=== PATIENT | male | born 1970 | race Caucasian/White ===

== ENCOUNTER 2020-07-17 12:33 | Emergency (ER) | payer OTHER ==
--- OUTSIDE RECORDS SUMMARY | 2020-07-17 12:35 | XMS REPORT | Clinical Summary ---
:1970 Author Organization [facility] Address [address] [place] [address] Care Team Providers Name Role Phone Denis Vallejo MD, Damir Lambert Primary Care Provider Allergies No Known Active Allergies Medications Medication Sig Dispensed Refills Start Date End Date Status metoprolol succinate XL Take 50 mg by 5 05/22/2017 Active (TOPROL-XL) 50 mg 24 hr mouth every tablet morning. Active Problems Problem Noted Date Diverticulitis of colon 09/24/2017 Surgical History Surgery Date Site/Laterality Comments COLONOSCOPY 08/16/2017 diverticulitis FRACTURE SURGERY 08/05/1994 - Right arm 08/04/1995 RESECTION, COLON, LOW 09/24/2017 Abdomen/N/A Procedure: RESECTION, ANTERIOR, LAPAROSCOPIC, COLON, L OW ANTERIOR, ROBOT-ASSISTED LAPAROSCOPIC; S urgeon: Rikki donovan MD; Location: [facility]; Service: Colon a nd Rectal Surgery; Latera lity: N/A; Medical History Medical History Date Comments Gout Hypertension Anesthesia nhap/nfhap only has one kideny funcitoning well Exercises 3 to 4 times per week walk/run - 2 miles- no sob. no chest pain Diverticulitis of colon Hearing loss of right ear pe tubes Family History Medical History Relation Name Comments Multiple sclerosis Father Hypertension Mother Relation Name Status Comments Father Alive Mother Alive Social History Tobacco Use Types Packs/Day Years Used Date Never Smoker Smokeless Tobacco: Current User Snuff Alcohol Use Drinks/Week oz/Week Comments No Sex Assigned at Date Recorded Not on file Last Filed Vital Signs Not on file Plan of Treatment Health Maintenance Due Date Last Done Comments COLONOSCOPY SCREENING 2020 SHINGLES VACCINES (#1) 2020 INFLUENZA VACCINE 03/05/2020 Results Not on fileafter 07/17/2019 Advance Directives For more information, please contact: [phone] Type Date Recorded 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
[2020-07-17] MEDS ORDERED: ALBUTEROL INHALER 60 PUFF/8 GM IH ONE (13:28)
[2020-07-17] MEDS ORDERED: predniSONE 20 MG TAB ONE (13:28)
--- NOTE | 2020-07-17 13:53 | RAD REPORT ---
EXAM DESCRIPTION: RAD - Chest Single View - 07/17/2020 1:40 pm CLINICAL HISTORY: SOBhistory of positive COVID test COMPARISON: None TECHNIQUE: AP portable chest image was obtained 07/17/2020 1:40 pm . FINDINGS: Lung volumes are low. No focal consolidation or significant lung parenchymal process ident ifiable. Nodular density in the left lung field superimposed on the anterior left fifth rib is believ ed to be summation artifact and not a true finding. Heart and vasculature are normal. No measurable p leural effusion and no pneumothorax. No acute bony abnormality seen. No acute aortic findings suspect ed. IMPRESSION: No acute cardiopulmonary process.
--- NOTE | 2020-07-17 13:58 | ER ---
Nurse's Notes [facility] Name: Hernandez Don Age: 50 yrs Sex: Male : 1970 Arrival Date: 07/17/2020 Time: 12:34 Bed 8 Private MD: Diagnosis: Coronavirus infection, unspecified;Shortness of breath Presentation: 07/17 12:41 Chief complaint: Patient states: Covid+, my O2 level was low at 88% this morning. ca1 Denies SOB. Coronavirus screen: Client denies travel out of the [place] in the last 14 days. Client reports previous positive COVID test result. Date of collection: July 13, 2020. Ebola Screen: Patient negative for fever greater than or equal to 101.5 degrees Fahrenheit, and additional compatible Ebola Virus Disease symptoms Patient denies exposure to infectious person. Patient denies travel to an Ebola-affected area in the 21 days before illness onset. No symptoms or risks identified at this time. Initial Sepsis Screen: Does the patient meet any 2 criteria? No. Patient's initial sepsis screen is negative. Does the patient have a suspected source of infection? No. Patient's initial sepsis screen is negative. Risk Assessment: Do you want to hurt yourself or someone else? Patient reports no desire to harm self or others. Onset of symptoms was July 17, 2020. 12:41 Method Of Arrival: Ambulatory ca1 12:41 Acuity: TIM 3 ca1 Historical: - Allergies: 12:43 No Known Allergies; ca1 - PMHx: 12:43 Diverticulitis; Hypertension; ca1 - PSHx: 12:43 None; ca1 - Immunization history:: Adult Immunizations up to date, Flu vaccine is not up to date. Patient has never been vaccinated. - Social history:: Smoking status: Patient denies any tobacco usage or history of. Screenin:57 Abuse screen: Denies threats or abuse. Denies injuries from another. Nutritional jl7 screening: No deficits noted. Tuberculosis screening: No symptoms or risk factors identified. 13:30 Fall Risk None identified. jl7 Assessment: 13:30 General: Appears in no apparent distress. uncomfortable, Behavior is calm, cooperative, jl7 appropriate for age. Pain: Denies pain. Neuro: Level of Consciousness is awake, alert, obeys commands, Oriented to person, place, time, situation. Cardiovascular: Patient's skin is warm and dry. Rhythm is regular. Respiratory: Airway is patent Respiratory effort is even, unlabored, Respiratory pattern is regular, symmetrical, Denies shortness of breath. Derm: Skin is pink, warm \T\ dry. Vital Signs: 12:41 BP 122 / 82; Pulse 99; Resp 16 S; Temp 98.4(TE); Pulse Ox 99% on R/A; Weight 88.45 kg ca1 (R); Height 5 ft. 6 in. (167.64 cm) (R); Pain 0/10; 14:00 BP 121 / 80; Pulse 90; Resp 17; Pulse Ox 95% ; jl7 12:41 Body Mass Index 31.47 (88.45 kg, 167.64 cm) ca1 ED Course: 12:34 Patient arrived in ED. ag5 12:43 Triage completed. ca1 12:43 Arm band placed on right wrist. ca1 12:47 Feliciano Ernandez PA is PHCP. cp 12:47 Feliciano Chicas MD is Attending Physician. cp 12:51 Ricardo Kebede RN is Primary Nurse. jl7 12:57 Patient has correct armband on for positive identification. Placed in gown. Bed in low jl7 position. Call light in reach. Side rails up X 1. Pulse ox on. NIBP on. 13:30 No provider procedures requiring assistance completed. Patient did not have IV access jl7 during this emergency room visit. 13:41 XRAY Chest (1 view) In Process Unspecified. EDMS Administered Medications: 13:16 Drug: Albuterol HFA Inhaler 2 puffs Route: Inhalation; jl7 14:42 Follow up: Response: No adverse reaction jl7 13:16 Drug: predniSONE 40 mg Route: PO; jl7 14:42 Follow up: Response: No adverse reaction jl7 Outcome: 13:58 Discharge ordered by MD. cp 14:44 Discharged to home ambulatory. jl7 14:44 Condition: stable 14:44 Discharge instructions given to patient, Instructed on discharge instructions, follow up and referral plans. medication usage, Demonstrated understanding of instructions, follow-up care, medications, Prescriptions given X 2. 14:44 Patient left the ED. jl7 Signatures: Dispatcher [employer] EDMS Feliciano Ernandez PA PA Ricardo Renner RN RN jl7 Nguyen Acsota, RN RN ca1 Job, Saul ag5
--- NOTE | 2020-07-17 13:59 | EDPHYS ---
Physician Documentation [facility] Name: Hernandez Don Age: 50 yrs Sex: Male : 1970 Arrival Date: 07/17/2020 Time: 12:34 Bed 8 Private MD: ED Physician Feliciano Chicas HPI: 07/17 13:10 This 50 yrs old Male presents to ER via Ambulatory with complaints of cp Breathing Difficulty. 13:10 The patient has shortness of breath with light activity. Onset: The symptoms/episode cp began/occurred gradually. 13:10 Associated signs and symptoms: Pertinent negatives: chest pain, productive cough, cp fever. Severity of symptoms: in the emergency department the symptoms have improved moderately. Historical: - Allergies: 12:43 No Known Allergies; ca1 - PMHx: 12:43 Diverticulitis; Hypertension; ca1 - PSHx: 12:43 None; ca1 - Immunization history:: Adult Immunizations up to date, Flu vaccine is not up to date. Patient has never been vaccinated. - Social history:: Smoking status: Patient denies any tobacco usage or history of. ROS: 13:15 Respiratory: Positive for cough, shortness of breath, on exertion. Negative for cp wheezing. 13:15 Eyes: Negative for injury, pain, redness, and discharge. cp 13:15 Constitutional: Negative for fever, poor PO intake. 13:15 Cardiovascular: Negative for chest pain, edema. 13:15 Abdomen/GI: Negative for abdominal pain, nausea, vomiting, and diarrhea. 13:15 Neuro: Negative for altered mental status, headache, weakness. 13:15 All other systems are negative. Exam: 13:20 Head/Face: Normocephalic, atraumatic. cp 13:20 Constitutional: The patient appears in no acute distress, alert, awake, comfortable, non-diaphoretic, non-toxic, well developed, well nourished. 13:20 Eyes: Periorbital structures: appear normal, Conjunctiva: normal, no exudate, no injection, Lids and lashes: appear normal, bilaterally. 13:20 ENT: External ear(s): are unremarkable, Nose: is normal, Mouth: Lips: moist, Oral mucosa: moist, Posterior pharynx: Airway: no evidence of obstruction, patent. 13:20 Neck: ROM/movement: is normal, is supple, without pain, no range of motions limitations. 13:20 Chest/axilla: Inspection: normal, Palpation: is normal, no crepitus, no tenderness. 13:20 Cardiovascular: Rate: normal, Rhythm: regular, Edema: is not appreciated, JVD: is not appreciated. 13:20 Respiratory: the patient does not display signs of respiratory distress, Respirations: normal, no use of accessory muscles, no retractions, labored breathing, is not present, Breath sounds: are clear throughout, no decreased breath sounds, no stridor, no wheezing. 13:20 Abdomen/GI: Exam negative for discomfort, distension, guarding, Inspection: abdomen appears normal. 13:20 Back: pain, is absent, ROM is normal. 13:20 Neuro: Orientation: to person, place \T\ time. Mentation: is normal, Motor: moves all fours, strength is normal, Gait: is steady. Vital Signs: 12:41 BP 122 / 82; Pulse 99; Resp 16 S; Temp 98.4(TE); Pulse Ox 99% on R/A; Weight 88.45 kg ca1 (R); Height 5 ft. 6 in. (167.64 cm) (R); Pain 0/10; 14:00 BP 121 / 80; Pulse 90; Resp 17; Pulse Ox 95% ; jl7 12:41 Body Mass Index 31.47 (88.45 kg, 167.64 cm) ca1 MDM: 12:47 Patient medically screened. [facility] 13:57 Data reviewed: vital signs, nurses notes, radiologic studies, plain films. 13:57 Counseling: I had a detailed discussion with the patient and/or guardian regarding: the historical points, exam findings, and any diagnostic results supporting the discharge/admit diagnosis, radiology results, to return to the emergency department if symptoms worsen or persist or if there are any questions or concerns that arise at home. 07/17 13:07 Order name: XRAY Chest (1 view); Complete Time: 13:54 07/17 13:57 Interpretation: Report reviewed. Administered Medications: 13:16 Drug: Albuterol HFA Inhaler 2 puffs Route: Inhalation; jl7 14:42 Follow up: Response: No adverse reaction [facility] 13:16 Drug: predniSONE 40 mg Route: PO; jl7 14:42 Follow up: Response: No adverse reaction jl7 Disposition: 07/18 10:41 Co-signature as Attending Physician, Feliciano Chicas MD I agree with the assessment and [facility] plan of care. Disposition: 07/17/20 13:58 Discharged to Home. Impression: Coronavirus infection, unspecified, Shortness of breath. - Condition is Stable. - Discharge Instructions: Shortness of Breath, COVID-19. - Prescriptions for Prednisone 20 mg Oral Tablet - take 2 tablet by ORAL route once daily for 5 days; 10 tablet. Albuterol Sulfate 90 mcg/actuation - inhale 1-2 puff by INHALATION route every 4-6 hours; 1 Inhaler. - Medication Reconciliation Form, Thank You Letter, Antibiotic Education, Prescription Opioid Use form. - Follow up: Private Physician; When: 1 - 2 days; Reason: Recheck today's complaints. - Problem is new. - Symptoms have improved. Signatures: Dispatcher [employer] EDFeliciano Green MD MD cha Page, Corey, PA PA cp Leal, Jahala, RN RN jl7 Nguyen Acosta RN RN ca1 Corrections: (The following items were deleted from the chart) 07/17 13:59 13:58 07/17/2020 13:58 Discharged to Home. Impression: Coronavirus infection, cp unspecified. Condition is Stable. Forms are Medication Reconciliation Form, Thank You Letter, Antibiotic Education, Prescription Opioid Use. Follow up: Private Physician; When: 1 - 2 days; Reason: Recheck today's complaints. Problem is new. Symptoms have improved. cp 14:44 13:59 07/17/2020 13:58 Discharged to Home. Impression: Coronavirus infection, jl7 unspecified; Shortness of breath. Condition is Stable. Discharge Instructions: COVID-19. Prescriptions for Prednisone 20 mg Oral Tablet - take 2 tablet by ORAL route once daily for 5 days; 10 tablet, Albuterol Sulfate 90 mcg/actuation - inhale 1-2 puff by INHALATION route every 4-6 hours; 1 Inhaler. and Forms are Medication Reconciliation Form, Thank You Letter, Antibiotic Education, Prescription Opioid Use. Follow up: Private Physician; When: 1 - 2 days; Reason: Recheck today's complaints. Problem is new. Symptoms have improved. cp 23:04 13:05 Constitutional: The patient appears in no acute distress, alert, awake, cp comfortable, non-diaphoretic, non-toxic, well developed, well nourished, cp 23:04 13:05 Head/Face: Normocephalic, atraumatic. cp cp 23:04 13:05 Eyes: Periorbital structures: appear normal, Conjunctiva: normal, no exudate, no cp injection, Lids and lashes: appear normal, bilaterally, cp 23:04 13:05 ENT: External ear(s): are unremarkable, Nose: is normal, Mouth: Lips: moist, Oral cp mucosa: moist, Posterior pharynx: Airway: no evidence of obstruction, patent, cp 23:04 13:05 Neck: ROM/movement: is normal, is supple, without pain, no range of motions cp limitations, cp 23:04 13:05 Chest/axilla: Inspection: normal, Palpation: is normal, no crepitus, no cp tenderness, cp 23:04 13:05 Cardiovascular: Rate: normal, Rhythm: regular, Edema: is not appreciated, JVD: is cp not appreciated, cp 23:04 13:05 Respiratory: the patient does not display signs of respiratory distress, cp Respirations: normal, no use of accessory muscles, no retractions, labored breathing, is not present, Breath sounds: are clear throughout, no decreased breath sounds, no stridor, no wheezing, cp 23:04 13:05 Abdomen/GI: Exam negative for discomfort, distension, guarding, Inspection: cp abdomen appears normal, cp 23:04 13:05 Back: pain, is absent, ROM is normal, cp cp 23:04 13:05 Neuro: Orientation: to person, place \T\ time. Mentation: is normal, Motor: moves cp all fours, strength is normal, Gait: is steady, cp
[2020-07-21 01:11] VITALS: TEMP 98.4
[2020-07-21 01:12] VITALS: BP 121/80; O2SAT 95
== END 2020-07-17 14:44 | disposition home or self-care (01) ==
LOC: ER 12:33
DX: U07.1 COVID-19 (principal); I10 Essential (primary) hypertension
CPT/HCPCS: 71045; 99284; J7512

== ENCOUNTER 2022-03-22 11:00 | Day surgery (SDC) | payer OTHER ==
[2022-03-12 14:14] LABS: Absolute Lymphocytes (CBC) 2.1 K/uL (0.7-4.9); Hematocrit 46.1 % (39.6-49.0); Lymphocytes % 18.4 % (15.3-44.8); MCV 89.2 fL (80-100); MPV 7.4 fL (7.6-11.3); RBC Red Blood Cell Count 5.17 M/uL (4.33-5.43)
[2022-03-12 14:24] LABS: Protime INR 0.99
[2022-03-12 14:30] LABS: Potassium 4.1 mmol/L (3.5-5.1)
[2022-03-12 14:37] LABS: SARS-CoV-2 Antigen Rapid Res Negative (Negative)
--- NOTE | 2022-03-13 10:39 | EKG ---
Test Date: 2022-03-12 Test Time: 13:54:07 Mold Sprayer: BRITNEY MEASUREMENT RESULTS: Intervals: Rate: 67 GA: 136 QRSD: 90 QT: 394 QTc: 416 Vale: P: 36 GA: 136 QRS: 15 T: 26 INTERPRETIVE STATEMENTS: Sinus rhythm with marked sinus arrhythmia Otherwise normal ECG Compared to ECG 01/22/2022 14:01:48 No significant changes Electronically Signed On 03-13-22 10:36:14 CDT by Kin Rico
[2022-03-22] MEDS ORDERED: HEPA 1000U/500MLS 2,000 UNIT/1,000 ML BAG IV ONE ×2 (11:09→11:57)
[2022-03-22] MEDS ORDERED: NA CHLORIDE 0.9% 500 ML ONE (11:24)
[2022-03-22] MEDS ORDERED: VERAPAMIL HCL 10 MG/4 ML VIAL IV ONE (12:09)
[2022-03-22] MEDS ORDERED: MIDAZOLAM HCL 2 MG/2 ML INJ ONE ×2 (12:09→13:21)
[2022-03-22] MEDS ORDERED: FENTANYL CITR 100 MCG/2 ML ONE (12:09)
[2022-03-22] MEDS ORDERED: HEPARIN 5000 UNIT/ML 1 ML VIAL ONE (12:09)
[2022-03-22] MEDS ORDERED: HEPARIN 10,000 UNIT/10 ML VIAL IV ONE (12:10)
[2022-03-22] MEDS ORDERED: ATROPINE SULF 1 MG/10 ML SYR IV ONE (12:10)
[2022-03-22 15:26] VITALS: BP 120/72; O2SAT 95
--- NOTE | 2022-03-22 23:50 | OP ---
Date of Procedure: 03/22/2022 Surgeon: VERA MURILLO Procedures Performed: 1.Selective coronary angiogram. 2.Left heart catheterization. Indication: Chest pain with abnormal stress test. Access: Right radial artery 6-Serbian, closed with TR band. Complications: None. Bleeding: Less than 10 mL. Total Sedation Time: 25 minutes, used fentanyl and Versed. Description Of Procedure: After risks, benefits, and alternatives were explained, the patient agreed to the procedure and signed informed consent. The patient was brought into the cardiac catheterizat ion laboratory, prepped and draped in usual sterile fashion. Then, I accessed right radial artery us ing pediatric micropuncture kit to place a 6-Serbian slender sheath and took a 5-Serbian JL4 catheter i nto the aortic root, engaged the left main and right coronary artery, took standard views, and then c atheter was pushed over the wire into the LV, took LVEDP and pullback, not requiring gradient and rem yvonne the catheter and sheath, placed TR band with good hemostasis. Findings: 1.Left main: Long and large size and normal. 2.LAD: Moderate-sized and normal, normal diagonal branches. 3.Left circumflex: Small, nondominant, and normal. 4.RCA: Very large and dominant and normal. 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 5.Normal LVEDP between 8 and 10 mmHg. Conclusion: 1.Normal coronary arteries. 2.Normal LVEDP. Plan: Medical management. /MICHELLE Voice ID: [id number] Report ID: [id number]
== END 2022-03-22 15:30 | disposition home or self-care (01) ==
LOC: CCL 11:00
PROVIDERS: ATTEND Internal Medicine
DX: R94.39 Abnormal result of other cardiovascular function study (principal); R07.9 Chest pain, unspecified; I10 Essential (primary) hypertension; E78.00 Pure hypercholesterolemia, unspecified; Z79.899 Other long term (current) drug therapy; Z20.822 Contact with and (suspected) exposure to COVID-19
CPT/HCPCS: 93005; 85025; 80048; 36415; 85610; 85730; 93458; 87811; C1893; Q9966; J1644 ×3; J2250; J3010; J7040